=== PATIENT | male | born 1955 | race Caucasian/White ===

== ENCOUNTER 2016-07-18 12:25 | Inpatient (IN) | payer OTHER ==
[~2016-07-18] VITALS: Ht 180.3 cm; Wt 163.2 kg
--- NOTE | ~2016-07-18 | HC ---
[facility] [place] [address] CONSULTATION Name: FARHANA BIRCH Room #: 451- ADM IN M.R.#: [id number] Admission: 07/18/16 Attend Phys: Chauncey Saucedo Discharge: Date of : 55 Report #: [id number] THIS REPORT FOR: //name// CC: Nii Saucedo REASON FOR CONSULTATION: I was asked to evaluate concerning leukocytosis, acute renal failure and evaluate for infection. HISTORY OF PRESENT ILLNESS: The patient is a 60-year-old with underlying nonischemic cardiomyopathy, who presents with persistent rash and acute shortness of breath. He has a permanent pacemaker, which was replaced in 01/2012. He has a prosthetic aortic valve remotely placed. He has been on sacubitril for his heart failure since March. While on this drug, he developed malaise and subsequently a rash with pruritus. He had acute shortness of breath and was hospitalized at [facility] on 07/06. During that hospitalization, he was placed on doxycycline for possible [place] spotted fever; however, serologic studies were negative, and this was discontinued. He was treated for a drug rash with Medrol Dosepak and was later dismissed. He comes in now with worsening shortness of breath. He has progressive rash and pruritus. Last evening, he had an episode of chills without fever. REVIEW OF SYSTEMS: Notes continued pruritus which makes the patient very uncomfortable. He has developed acute renal failure and Nephrology has seen him. He has been given more diuretics for his heart failure. He was actually started on a new drug, ivabradine yesterday. He was on allopurinol and this was discontinued. He has had no cough or sputum production. He has had some thrush. Episode of nausea last evening, which has resolved. No abdominal pain or diarrhea. No dysuria or frequency. No arthritis symptoms. He states that if his itching would subside, he would feel reasonably well. ALLERGIES: Prior to his admission, had included CAT and MORPHINE. MEDICATIONS: As noted on his APR. He was placed on Levaquin on 07/18. Yesterday switched to vancomycin and Zosyn. He remains on Solu-Medrol. PAST MEDICAL AND PAST SURGICAL HISTORY: Obstructive sleep apnea; nonischemic cardiomyopathy, ejection fraction 15%-20%; obesity; atrial fibrillation; permanent pacemaker; aortic valve replacement mechanical in 2004; right ACL patellar tendon repair; right leg fracture surgery; hyperlipidemia; hypertension; left bundle branch block and TIA. FAMILY HISTORY: Noncontributory. SOCIAL HISTORY: Past smoker. No significant alcohol intake. Lives with his [address] [address] CONSULTATION Name: FARHANA BIRCH Room #: [facility] IN M.R.#: [id number] Admission: 07/18/16 Attend Phys: Chauncey Saucedo Discharge: Date of : 55 Report #: [id number] . He is now disabled. No HIV risk factors. PHYSICAL EXAMINATION: VITAL SIGNS: Afebrile and hemodynamically stable. Blood pressures have ranged anywhere from 90-136 systolic over mid 50s-70s diastolic. Heart rate in the 90s. GENERAL: He was sitting up in his chair, in no acute distress. Mental status was normal. He was obese. SKIN: Maculopapular rash diffusely, facial erythema. HEENT: Eyes are unremarkable except for mild conjunctival injection. Mouth, thrush. Tongue normal. NECK: Supple. No adenopathy. LUNGS: Decreased breath sounds in the bases bilaterally. HEART: [place] valve sounds over the aortic area. No gallop appreciated. ABDOMEN: Obese and nontender, no hepatosplenomegaly or mass. EXTREMITIES: Unremarkable. NEUROLOGIC: Normal. LABORATORY STUDIES: Sodium 139, potassium 4.4, bicarbonate of 24, creatinine 3.1, AST 28, ALT 73, alkaline phosphatase 110 and bilirubin 0.6. BNP 5000. Hemoglobin 12.7; platelet count 278,000; white count initially 19.9, now up to 37 with 83% segs, 2% bands and 8% eosinophils, no lymphocytes, vancomycin trough 25. MRSA screen negative. Urinalysis unremarkable. Ultrasound of kidneys negative. Chest x-ray effusions and basilar atelectasis. Blood cultures 07/18 negative. IMPRESSION: A 60-year-old with nonischemic cardiomyopathy, aortic valve replacement, drug rash, leukocytosis likely due from corticosteroids, acute renal failure, combination of cardiorenal disease possibly related to drug allergy, although his urinalysis was unremarkable. His lactic acid this morning was 4.1, but I suspect this is more related to his cardiac output than true sepsis. I would recommend discontinuation of as many drugs as possible including his antibiotics. I agree with holding his allopurinol. The new drug ivabradine could also be consideration, but we will leave this up to Cardiology. He will continue his corticosteroids and antihistamines. We will follow closely. <ELECTRONICALLY SIGNED> By: Abdirizak Werner MD 07/21/16 1112 1042 [id number] Abdirizak Werner MD /nt
--- NOTE | ~2016-07-18 | HC ---
[facility] [place] [address] CONSULTATION Name: FARHANA BIRCH Room #: [facility] ADM IN M.R.#: [id number] Admission: 07/18/16 Attend Phys: Chauncey Saucedo Discharge: Date of : 55 Report #: [id number] THIS REPORT FOR: //name// CC: Nii Navarrete Vaishalicésar Saucedo DATE OF SERVICE: 07/19/2016 REASON FOR CONSULTATION: Elevated creatinine. HISTORY OF PRESENT ILLNESS: The patient with longstanding cardiac disease, had a bicuspid aortic valve, eventually a valve replacement, arrhythmia problems and has had a low ejection fraction, now treated with a bi-V pacemaker and AICD. He was on Entresto and doing well, then had deterioration after the Entresto was doubled. He has had low blood pressure, admissions now at [facility], [facility] and here at [facility]. His course has also been complicated by diffuse maculopapular rash over the last couple of weeks after he was hospitalized initially at [place]. He has also had intermittent hypertension that has been treated. HOME MEDICATIONS: Current listing of home medications include allopurinol 300 mg daily, aspirin 81 mg daily, baclofen 10 mg q. 6 p.r.n., Valium 5 mg p.r.n., Lanoxin 0.125 mg daily, furosemide 40 mg daily, hydrocodone, metoprolol XL 25 mg daily, Percocet and warfarin. He also has a past history of sleep apnea, atrial fibrillation as well as cardiomyopathy with ejection fraction of 15-20%. REVIEW OF SYSTEMS: GENERAL: He had been feeling poorly, feeling a bit better now. EYES: His vision is okay. No trouble there. ENT: Hearing okay, swallows okay. Denies mouth sores or ulcers. ENDOCRINE: No diabetes or thyroid disease. RESPIRATORY: Has been getting easily short-winded and fatigued. CARDIAC: Denies angina, but his legs were swollen . GASTROINTESTINAL: No nausea or vomiting. GENITOURINARY: Occasionally having trouble starting his urinary stream. NEUROLOGIC: No seizure, syncope or stroke. PSYCHIATRIC: No depression or anxiety. SKELETAL: No arthritis. PHYSICAL EXAMINATION: GENERAL: This is a somewhat ill-appearing gentleman in no acute distress. SKIN: With diffuse maculopapular rash over the trunk and extremities. SKELETAL: Somewhat obese. HEENT: Extraocular movements are full. Vision intact. No scleral icterus. Hearing intact. Mucous membranes moist. [facility] [address] [place] [address] CONSULTATION Name: FARHANA BIRCH Room #: [address] [place] [address] [place] [facility].#: [id number] Admission: 07/18/16 Attend Phys: Chauncey Saucedo Discharge: Date of : 55 Report #: [id number] NECK: Supple. CHEST: Shows diminished breath sounds at the bases. HEART: Distant. ABDOMEN: Soft. EXTREMITIES: Showed 2-3+ peripheral edema. LABORATORY DATA: The creatinine is 2.0, was 1.9 yesterday, BUN is 45, but he is on steroids, albumin is 2.9. Of note, creatinine when hospitalized at this hospital last year was as low as 1.3, hemoglobin is 12.4, white count is 23.1, again he is on steroids, there are 6% eosinophils. ASSESSMENT: 1. Elevated creatinine. This could well be simply cardiorenal with worsening cardiac performance. His blood pressures have been running substantially less than 100 at times and this could also be contributing to decreased renal perfusion. He does have the skin rash and allergic interstitial nephritis must be considered. He is on some steroids, there he does have the eosinophils and certainly must be considered for completeness, urinalysis, urine protein studies, paraprotein studies and renal sonography have all been ordered and those would be reviewed. Currently, he is markedly volume overloaded and I believe another dose of IV Lasix is indicated. I will give that. 2. Heart failure with reduced ejection fraction, again we will give Lasix. He is now restarted on Corlanor as well. 3. History of prosthetic aortic valve, he is on anticoagulation. 4. Paroxysmal atrial fibrillation. 5. History obstructive sleep apnea. <ELECTRONICALLY SIGNED> By: Cong Dorado MD 07/22/16 1012 [id number] [id number] Landon Chappell MD /nt
--- NOTE | ~2016-07-18 | HC ---
[facility] [address] [place] [address] CONSULTATION Name: FARHANA BIRCH Room #: [address] [place] [address] IN M.R.#: [id number] Admission: 07/18/16 Attend Phys: Chauncey Saucedo Discharge: 07/26/16 Date of : 55 Report #: [id number] THIS REPORT FOR: //name// CC: Nii Saucedo HISTORY OF PRESENT ILLNESS: The patient is a 60-year-old male who was admitted with increased shortness of breath, was noted to have hypoxic respiratory failure. He had bronchitis. He was noted to have acute on chronic respiratory failure. He had acute renal insufficiency, question nephritis. He is improving and he is being changed by nephrology over to p.o. Lasix. He has nonischemic cardiomyopathy with automatic implantable cardiac defibrillator. He has acute on chronic systolic congestive heart failure. He was noted to have a drug rash suspected, continuing steroids with infectious disease involved. He was noted to have medical complexity with generalized debilitation. We are seeing him in rehabilitation medicine consultation. PAST MEDICAL HISTORY: Includes left bundle branch block, hyperlipidemia, hypertension, right ACL patellar tendon repair. Continues to have some instability of that right knee, but does not want any further surgery. He had the pacemaker in 2013, history of obesity, cardiomyopathy, ejection fraction 15-20%. Obstructive sleep apnea. MEDICATIONS: Please see the full medication listing. HABITS: Former smoker, quit greater than a year ago. No history of alcohol abuse. ALLERGIES: MORPHINE AND CATS. SOCIAL HISTORY: House, spouse, 2 steps in. Used a cane with the right knee. REVIEW OF SYSTEMS: Did not offer any current complaints of chest pain, shortness of breath or abdominal discomfort. Notes he was hospitalized at [facility] and was discharged just a couple of days prior to his current [facility] hospitalization. PHYSICAL EXAMINATION: GENERAL: He is an obese, pleasant 60-year-old white male in no obvious distress. VITAL SIGNS: Last recorded temperature 96.2, pulse 71, respirations 18, blood pressure 130/73. The patient is alert, oriented. HEENT: Appeared to be benign. NEUROLOGIC: Cranial nerves are grossly intact. Facies are symmetric. He has functional range of motion of both upper extremities without obvious focal weakness. DTRs are 1. No focal calf swelling bilaterally. Strength is grade [facility] [address] [place] [address] CONSULTATION Name: FARHANA BIRCH Room #: [address] [place] [address] IN M.R.#: [id number] Admission: 07/18/16 Attend Phys: Chauncey Saucedo Discharge: 07/26/16 Date of : 55 Report #: [id number] 4-/5 left lower extremity and 4-/5 right lower extremity. Tone is intact. He does have a rash noted over both upper and lower extremities. This is non confluent erythematous semi-raised rash. No blistering. Functionally, he has been standby assistance with sit to stand and has ambulated 50 feet contact guard. ASSESSMENT: A 60-year-old white male with the following problem list: 1. Medical complexity with generalized debilitation. 2. Acute on chronic respiratory failure. 3. Acute renal insufficiency, which is improving. 4. Hypersensitivity reaction/drug reaction. 5. Nonischemic cardiomyopathy with AICD. 6. Acute on chronic systolic congestive heart failure. 7. Obesity. 8. Prior right anterior cruciate ligament/patellar tendon repair. PLAN: The patient is involved in the therapies to work on improving strength and endurance and balance. He is hoping to return directly home where he can have home health care. Will need to do some stair training prior to discharge and needs to further improve his endurance. At this point, we will continue to follow along with you regarding his therapy needs. <ELECTRONICALLY SIGNED> By: Nii Braun MD 07/30/16 1518 151 09 Nii Braun MD /nt
--- NOTE | ~2016-07-18 | HC ---
[facility] [address] CONSULTATION Name: FARHANA BIRCH Room #: [facility] ADM IN M.R.#: [id number] Admission: 07/18/16 Attend Phys: Chauncey Saucedo Discharge: Date of : 55 Report #: [id number] THIS REPORT FOR: //name// CC: Nii Navarrete Vaishali Chauncey Saucedo DATE OF SERVICE: 07/18/2016 DATE OF SERVICE: 07/18/2016. REFERRAL PHYSICIAN: Chauncey Saucedo MD. REASON FOR REFERRAL: Dyspnea. HISTORY OF PRESENT ILLNESS: The patient is a 60-year-old white male who presents to emergency room with increasing dyspnea, febrile illness and diaphoresis. A pulmonary consultation was requested. The patient had it eventful last several weeks. He was recently hospitalized at [facility] following an 11 day hospitalization there. He was seen for dyspnea along with intractable hiccups and rash. The cause of the rash was felt to be related to drug allergy. The culprit was felt to be ENTRESTO. He was discharged 2 days ago. He was doing fair until on the day of admission when he began to notice increasing dyspnea on exertion. Otherwise, denies any chest pain or productive cough or hemoptysis. The patient was recently diagnosed with sleep apnea. The study was done in October 2015. The apnea-hypopnea index measured 90 events per hour with low saturation 87%. The patient has been intolerant to the use of CPAP. PAST MEDICAL HISTORY: Remarkable for history of complete heart block, status post dual chamber pacemaker implantation in January 2014; cardiomyopathy with ejection fraction approximately 45%, status post prosthetic aortic valve; hypertension; hyperlipidemia; and past history of TIA. PAST SURGICAL HISTORY: Include status post aortic valve replacement with a mechanical valve, 2004 and right ACL and patellar repair, right lower extremity fracture. ALLERGIES: MORPHINE, reactions not specified. ENTRESTO ? possible rash. CURRENT MEDICATIONS: Include aspirin, metoprolol, Lasix, allopurinol, digoxin, Coumadin, oxycodone, Valium, Lioresal. [facility] [address] [place] [address] CONSULTATION Name: FARHANA BIRCH Room #: [address] [place] [address] IN M.R.#: [id number] Admission: 07/18/16 Attend Phys: Chauncey Saucedo Discharge: Date of : 55 Report #: [id number] FAMILY HISTORY: Noncontributory SOCIAL HISTORY: The patient has smoked in the past, but quit. Denies any alcohol use. REVIEW OF SYSTEMS: Notable with recent onset of diaphoresis, otherwise 10-point system review negative. PHYSICAL EXAMINATION: GENERAL: He is awake, alert, appears to be moderately dyspneic. VITAL SIGNS: Temperature in the ER is 98.5 degrees Fahrenheit, pulse is 110, respiratory rate is 20, blood pressure 100/62 mmHg, and saturation is 94%. HEENT: Normocephalic, atraumatic. NECK: Supple, without any lymphadenopathy or thyromegaly. CHEST: Breath sounds are fair due to poor effort. No obvious rales or wheezes. CARDIOVASCULAR: Heart sounds are distant. No obvious murmurs or gallop. Pulses are 2+/4+ bilaterally. ABDOMEN: Obese, soft, nontender, no organomegaly or masses felt. GENITOURINARY: Deferred. RECTAL: Deferred. EXTREMITIES: No cyanosis or clubbing. Trace edema bilaterally. LABORATORY AND DIAGNOSTIC DATA: Chest x-ray was clear. Electrolytes: Sodium 137, potassium 4.3, chloride 102, CO2 of 27, BUN is 39, creatinine is 1.9. WBC 19,900; hemoglobin is 13.9; platelets are normal. INR is 3.8. Albumin is 2.9. Eosinophil count is 6%. IMPRESSION: 1. Dyspnea in this 60-year-old white male. He had recent development of rash which is apparently improving. He has had diaphoresis. He has past history of prosthetic aortic valve replaced in 2004, obstructive sleep apnea, intolerant to the use of CPAP, severe ischemic cardiomyopathy. Cause of dyspnea, dyspnea is likely multifactorial. Chest x-ray does not show obvious evidence of pneumonia, though this could be early onset nosocomial infectious process. Underlying obstructive sleep apnea is not treated, cardiomyopathy is likely contributing. With his recent presumed chills and febrile illness and the rash, sepsis syndrome should be considered. 2. Diffuse rash, presumed drug reaction ? allopurinol, ? others, ? atypical infection. The patient was seen by ID at [facility]. Workup was thus far negative. 3. Obstructive sleep apnea, intolerant to the use of CPAP. Strongly recommended compliance given symptoms. 4. Severe cardiomyopathy, nonischemic, likely due to valvular heart disease along with untreated sleep apnea. 5. Prosthetic aortic valve 2004, on chronic anticoagulation. 6. Hypertension. [address] [place] [address] CONSULTATION Name: FARHANA BIRCH Room #: [address] [place] [address] IN M.R.#: [id number] Admission: 07/18/16 Attend Phys: Chauncey Saucedo Discharge: Date of : 55 Report #: [id number] 7. Obesity. 8. Acute kidney injury/chronic kidney disease. RECOMMENDATION: Agree plans with broad spectrum antibiotics, culture. Keep saturation 90%. Encourage use of BiPAP or CPAP as tolerated. Thank you for the consultation. <ELECTRONICALLY SIGNED> By: Glen Lugo MD 07/22/16 1350 1054 0516 Glen Lugo MD /nt
--- NOTE | ~2016-07-18 | EKG ---
[address] [address] ELECTROCARDIOGRAM REPORT Name: FARHANA BIRCH Room #: 307- ADM IN M.R.#: [id number] Admission: 07/18/16 Attend Phys: Chauncey Saucedo Discharge: Date of : 55 Report #: [id number] THIS REPORT FOR: //name// [facility] ED Test Date: 2016-07-18 Test Time: 13:17:14 Pat Name: FARHANA BIRCH Department: Room: [facility] Gender: M [employer] Cutting Machine Operator: : 1955 Requested By: Kaye Trejo Order Number: [id number] MD: Gurdeep De Los Santos Measurements Intervals Milo Rate: 96 P: 5 GA: 157 QRS: 207 QRSD: 137 T: 19 QT: 374 QTc: 473 Interpretive Statements Atrial-sensed ventricular-paced rhythm No further analysis attempted due to paced rhythm Baseline wander in lead(s) V3 Compared to ECG 10/20/2015 06:40:11 No significant changes Electronically Signed On 07-18-2016 21:01:13 CDT by Gurdeep De Los Santos [email or web address] <ELECTRONICALLY SIGNED> By: Gurdeep De Los Santos MD 07/18/16 2101 1317 1317 Gurdeep De Los Santos MD /EPI
[~2016-07-18 12:25] MED LIST: ALLOPURINOL 30300 M1 PO; ASPIR 8181 MG PO; COUMADIN 5 MG TA5 M1 PO; COUMADIN7.5 MG PO; ENOXAPARIN150 MG/11 SUBQ; ENTRESTO 24 MG1 EACH PO; KEFLEX250 MG PO; KLOR-CON20 ME1 PO; LANOXIN 0.120.125 M2 PO; LASIX 40 MG TAB40 M2 PO; LISINOPRIL5 MG PO; TOPROL XL25 MG PO; TRIBENZOR 40-51 EAC1 PO
[2016-07-18 12:26] VITALS: BP 101/62
[2016-07-18 13:33] LABS: HEMOGLOBIN 13.9 gm/dL (14.0-18.0); MCH 27.8 pg (26.0-34.0); MCV 84.3 fL (80.0-100.0); PLATELET COUNT 339 thou/uL (150-400); RBC 4.98 mil/uL (4.50-6.00); RDW 15.4 % (10.5-14.5); WBC 19.9 thou/uL (4.0-11.0)
[2016-07-18 13:34] LABS: MANUAL DIFF YES
[2016-07-18 13:42] LABS: ANION GAP 8 mmol/L (7-16); BUN 39 mg/dL (7-18); CHLORIDE 102 mmol/L (98-107); CO2 27 mmol/L (21-32); CREATININE 1.9 mg/dL (0.7-1.3); GLUCOSE 203 mg/dL (74-106); POTASSIUM 4.3 mmol/L (3.5-5.1); SODIUM 137 mmol/L (136-145)
[2016-07-18 13:43] LABS: CALCIUM 8.7 mg/dL (8.5-10.1)
[2016-07-18 13:45] LABS: APTT 38.5 Seconds (24.5-32.8); INR 3.8
[2016-07-18 13:55] LABS: ALBUMIN 2.9 g/dL (3.4-5.0); ALKALINE PHOSPHATASE 110 U/L (46-116); NT-PRO BRAIN NAT PEPTIDE 5148 pg/mL (<300); SGOT 28 U/L (15-37); SGPT 73 U/L (30-65); TOTAL BILIRUBIN 0.6 mg/dL (<0.1-1.0); TOTAL PROTEIN 6.3 g/dL (6.4-8.2); TROPONIN-I < 0.04 ng/mL (<0.04-0.07)
[2016-07-18 14:06] LABS: METAMYELOCYTES 1 %; TOTAL CELL COUNT 100
[2016-07-18 14:07] LABS: ABSOLUTE NEUTROPHILS 14.9 thou/uL (1.4-8.2)
[2016-07-18] MEDS ORDERED: HYDROCODONE-AP1 EAC6 PO (15:14)
[2016-07-18] MEDS ORDERED: COUMADIN7.5 MG PO (15:14)
[2016-07-18] MEDS ORDERED: PERCOCET PO (15:15)
[2016-07-18] MEDS ORDERED: VALIUM5 MG PO (15:15)
[2016-07-18] MEDS ORDERED: LIORESAL 10 MG10 MG PO (15:16)
[2016-07-18 16:30] VITALS: BP 96/56
[2016-07-18 17:21] VITALS: BP 93/48
[2016-07-18 20:00] VITALS: BP 137/77
[2016-07-19 04:00] VITALS: BP 118/52
[2016-07-19 06:26] LABS: HEMATOCRIT 39.5 % (42.0-52.0); HEMOGLOBIN 12.4 gm/dL (14.0-18.0); MCH 27.2 pg (26.0-34.0); MCHC 31.4 g/dL (28.0-37.0); MCV 86.5 fL (80.0-100.0); RBC 4.56 mil/uL (4.50-6.00); RDW 15.7 % (10.5-14.5); WBC 23.1 thou/uL (4.0-11.0)
[2016-07-19 06:44] LABS: CALCIUM 8.3 mg/dL (8.5-10.1); POTASSIUM 3.8 mmol/L (3.5-5.1)
[2016-07-19 08:54] VITALS: BP 136/74
[2016-07-19 14:58] LABS: URINE BILIRUBIN NEGATIVE (Negative); URINE BLOOD NEGATIVE (Negative); URINE COLOR YELLOW; URINE GLUCOSE-RANDOM* NEGATIVE (Negative); URINE KETONES NEGATIVE (Negative); URINE NITRITE NEGATIVE (Negative); URINE PROTEIN (DIPSTICK) TRACE (Negative); URINE UROBILINOGEN 0.2 E.U./dl (0.2-1.0)
[2016-07-19 16:52] VITALS: BP 133/73
[2016-07-19 19:33] VITALS: BP 123/58
[2016-07-20 04:08] VITALS: BP 105/60
[2016-07-20 05:12] LABS: URINE CREATININE-RANDOM* 106.4 mg/dL (Not Estab.); URINE PROTEIN-RANDOM* 27.6 mg/dL (Not Estab.)
[2016-07-20 05:51] LABS: HEMATOCRIT 39.6 % (42.0-52.0); HEMOGLOBIN 12.7 gm/dL (14.0-18.0); MCH 27.4 pg (26.0-34.0); MCHC 32.1 g/dL (28.0-37.0); MCV 85.5 fL (80.0-100.0); PLATELET COUNT 278 thou/uL (150-400); RBC 4.63 mil/uL (4.50-6.00); RDW 15.6 % (10.5-14.5); WBC 37.1 thou/uL (4.0-11.0)
[2016-07-20 05:54] LABS: MANUAL DIFF YES
[2016-07-20 06:01] LABS: INR 3.2; PROTIME 32.8 Seconds (9.3-11.4)
[2016-07-20 06:11] LABS: ALBUMIN 2.7 g/dL (3.4-5.0); CALCIUM 8.2 mg/dL (8.5-10.1); PHOSPHORUS 2.6 mg/dL (2.5-4.9); POTASSIUM 4.4 mmol/L (3.5-5.1)
[2016-07-20 06:20] LABS: CREATININE 3.1 mg/dL (0.7-1.3)
[2016-07-20 08:00] VITALS: BP 86/54
[2016-07-20 08:34] LABS: ABSOLUTE NEUTROPHILS 31.5 thou/uL (1.4-8.2); METAMYELOCYTES 1 %; TOTAL CELL COUNT 100
[2016-07-20 08:35] LABS: ANISOCYTOSIS 1+; POLYCHROMASIA OCCASIONAL
[2016-07-20 10:39] LABS: ABG SAMPLE TYPE ARTERIAL; HCO3 22.7 mmol/L (22.0-26.0); LACTATE 3.51 mmol/L (0.5-2.0); O2(CT) 17.6 mL/dL (15.0-23.0); O2Hb 94.1 % (92.0-98.0); PCO2 38.7 mmHg (35.0-45.0); PO2 77.6 mmHg (80.0-100.0); STICK SITE L.RADIAL; pH 7.387 (7.360-7.450); sO2 95.4 % (92.0-98.0); tCO2 23.9 mmol/L (24.0-30.0)
[2016-07-20 14:35] VITALS: BP 128/64
[2016-07-20 16:30] VITALS: BP 119/59
[2016-07-20 19:13] VITALS: BP 126/70
[2016-07-20 20:37] VITALS: BP 160/84
[2016-07-21 04:11] VITALS: BP 124/63
[2016-07-21 06:05] LABS: HEMATOCRIT 36.9 % (42.0-52.0); HEMOGLOBIN 11.7 gm/dL (14.0-18.0); MCH 27.3 pg (26.0-34.0); MCHC 31.8 g/dL (28.0-37.0); MCV 85.8 fL (80.0-100.0); RDW 15.5 % (10.5-14.5)
[2016-07-21 06:16] LABS: INR 3.9; PROTIME 40.9 Seconds (9.3-11.4)
[2016-07-21 06:23] LABS: ALBUMIN 2.6 g/dL (3.4-5.0); CALCIUM 7.8 mg/dL (8.5-10.1); PHOSPHORUS 5.2 mg/dL (2.5-4.9); POTASSIUM 4.1 mmol/L (3.5-5.1)
[2016-07-21 06:33] LABS: ALBUMIN 2.6 g/dL (3.4-5.0); ALKALINE PHOSPHATASE 74 U/L (46-116); ANION GAP 13 mmol/L (7-16); BUN 75 mg/dL (7-18); CALCIUM 7.9 mg/dL (8.5-10.1); CHLORIDE 99 mmol/L (98-107); CO2 23 mmol/L (21-32); GLUCOSE 209 mg/dL (74-106); MAGNESIUM 1.9 mg/dL (1.8-2.4); PHOSPHORUS 5.1 mg/dL (2.5-4.9); POTASSIUM 4.1 mmol/L (3.5-5.1); SGOT 29 U/L (15-37); SGPT 80 U/L (30-65); SODIUM 135 mmol/L (136-145); TOTAL BILIRUBIN 0.5 mg/dL (<0.1-1.0); TOTAL PROTEIN 5.5 g/dL (6.4-8.2); TROPONIN-I < 0.04 ng/mL (<0.04-0.07)
[2016-07-21 06:39] LABS: CREATININE 4.8 mg/dL (0.7-1.3)
[2016-07-21 06:41] LABS: CREATININE 4.8 mg/dL (0.7-1.3)
[2016-07-21 07:37] LABS: MANUAL DIFF YES; PLATELET COUNT 197 thou/uL (150-400); WBC 18.1 thou/uL (4.0-11.0)
[2016-07-21 07:42] VITALS: BP 100/60
[2016-07-21 10:28] LABS: ABSOLUTE NEUTROPHILS 16.3 thou/uL (1.4-8.2); ANISOCYTOSIS 1+; METAMYELOCYTES 1 %; TOTAL CELL COUNT 100
[2016-07-21 11:27] VITALS: BP 123/61
[2016-07-21 16:03] VITALS: BP 93/56
[2016-07-21 22:09] VITALS: BP 154/76
[2016-07-22 05:54] VITALS: BP 118/66
[2016-07-22 05:58] LABS: ABSOLUTE NEUTROPHILS 11.3 thou/uL (1.4-8.2); BASOPHILS 0.2 % (0.0-2.0); EOSINOPHILS 0.5 % (0.0-3.0); HEMATOCRIT 35.5 % (42.0-52.0); HEMOGLOBIN 11.3 gm/dL (14.0-18.0); MCH 27.6 pg (26.0-34.0); MCV 86.2 fL (80.0-100.0); MONOCYTES 5.8 % (1.0-8.0); PLATELET COUNT 161 thou/uL (150-400); POLYS 80.5 % (36.0-66.0); RBC 4.11 mil/uL (4.50-6.00); RDW 15.6 % (10.5-14.5)
[2016-07-22 06:01] LABS: MANUAL DIFF NO
[2016-07-22 06:12] LABS: ALBUMIN 2.6 g/dL (3.4-5.0); CALCIUM 7.5 mg/dL (8.5-10.1); PHOSPHORUS 6.2 mg/dL (2.5-4.9); POTASSIUM 4.3 mmol/L (3.5-5.1); PROTIME 48.4 Seconds (9.3-11.4)
[2016-07-22 06:16] LABS: CREATININE 5.8 mg/dL (0.7-1.3)
[2016-07-22 06:25] LABS: INR 4.7
[2016-07-22 08:00] VITALS: BP 120/61
[2016-07-22 12:30] VITALS: BP 115/67
[2016-07-22 14:11] LABS: KAPPA FREE LIGHT CHAINS 19.5 mg/L (3.30-19.40); KAPPA/LAMBDA RATIO 1.37 (0.26-1.65); LAMBDA FREE LIGHT CHAINS 14.19 mg/L (5.71-26.30)
[2016-07-22 16:15] VITALS: BP 105/50
[2016-07-22 19:58] VITALS: BP 146/67
[2016-07-23 04:34] VITALS: BP 133/76
[2016-07-23 05:53] LABS: HEMATOCRIT 34.6 % (42.0-52.0); HEMOGLOBIN 11.6 gm/dL (14.0-18.0); MCH 28.3 pg (26.0-34.0); MCHC 33.5 g/dL (28.0-37.0); MCV 84.4 fL (80.0-100.0); RBC 4.1 mil/uL (4.50-6.00); RDW 15.6 % (10.5-14.5)
[2016-07-23 06:03] LABS: INR 4.4; PROTIME 45.6 Seconds (9.3-11.4)
[2016-07-23 06:19] LABS: ALBUMIN 2.6 g/dL (3.4-5.0); CALCIUM 7.4 mg/dL (8.5-10.1); CREATININE 5.8 mg/dL (0.7-1.3); PHOSPHORUS 6.5 mg/dL (2.5-4.9)
[2016-07-23 10:48] VITALS: BP 126/71
[2016-07-23 11:34] VITALS: BP 130/73
[2016-07-23 16:11] LABS: c-ANCA <1:20 titer (Neg:<1:20); p-ANCA <1:20 titer (Neg:<1:20)
[2016-07-23 17:15] VITALS: BP 157/83
[2016-07-23 19:34] VITALS: BP 126/77
[2016-07-24 03:29] LABS: HEMATOCRIT 38.7 % (42.0-52.0); HEMOGLOBIN 12.3 gm/dL (14.0-18.0); MCH 27.4 pg (26.0-34.0); MCHC 31.8 g/dL (28.0-37.0); MCV 86.1 fL (80.0-100.0); RBC 4.5 mil/uL (4.50-6.00); RDW 15.6 % (10.5-14.5); WBC 13.6 thou/uL (4.0-11.0)
[2016-07-24 03:53] LABS: ALBUMIN 2.9 g/dL (3.4-5.0); CALCIUM 7.6 mg/dL (8.5-10.1); CREATININE 5.8 mg/dL (0.7-1.3); PHOSPHORUS 6.4 mg/dL (2.5-4.9)
[2016-07-24 04:57] VITALS: BP 102/42
[2016-07-24 07:14] VITALS: BP 136/72
[2016-07-24 09:29] LABS: PROTIME 30.8 Seconds (9.3-11.4)
[2016-07-24 11:28] VITALS: BP 138/78
[2016-07-24 15:23] VITALS: BP 141/76
[2016-07-24 19:21] VITALS: BP 102/57
[2016-07-25 03:19] VITALS: BP 131/73
[2016-07-25 06:01] LABS: HEMATOCRIT 39.9 % (42.0-52.0); HEMOGLOBIN 12.9 gm/dL (14.0-18.0); MCH 27.4 pg (26.0-34.0); MCHC 32.2 g/dL (28.0-37.0); RBC 4.7 mil/uL (4.50-6.00); RDW 15.5 % (10.5-14.5); WBC 12.2 thou/uL (4.0-11.0)
[2016-07-25 06:22] LABS: ALBUMIN 3.1 g/dL (3.4-5.0); CREATININE 5.1 mg/dL (0.7-1.3); PHOSPHORUS 5.9 mg/dL (2.5-4.9); POTASSIUM 3.9 mmol/L (3.5-5.1)
[2016-07-25 07:30] VITALS: BP 119/76
[2016-07-25 09:41] LABS: PROTIME 20.7 Seconds (9.3-11.4)
[2016-07-25 19:07] VITALS: BP 137/71
[2016-07-26 03:07] VITALS: BP 134/69
[2016-07-26 06:22] LABS: INR 1.7; PROTIME 17.9 Seconds (9.3-11.4)
[2016-07-26 06:24] LABS: ALBUMIN 2.6 g/dL (3.4-5.0); CALCIUM 7.9 mg/dL (8.5-10.1); CREATININE 4.7 mg/dL (0.7-1.3); PHOSPHORUS 5.5 mg/dL (2.5-4.9); POTASSIUM 3.8 mmol/L (3.5-5.1)
[2016-07-26 07:32] VITALS: BP 120/75
[2016-07-26 09:32] VITALS: BP 120/75
[2016-07-26] MEDS ORDERED: ISORDIL10 MG PO (10:49)
[2016-07-26] MEDS ORDERED: PREDNISONE 20 M20 M1 PO (10:51)
[2016-07-26 11:23] VITALS: BP 120/75
[2016-07-26 12:07] VITALS: BP 120/75
[2016-07-29 16:08] LABS: A/G RATIO 1.2 (0.7-1.7); ALBUMIN 2.9 g/dL (2.9-4.4); ALPHA 1 0.3 g/dL (0.0-0.4); ALPHA 2 0.5 g/dL (0.4-1.0); BETA 0.9 g/dL (0.7-1.3); GAMMA 0.6 g/dL (0.4-1.8); M-SPIKE Not Observed g/dL (Not Observed)
== END 2016-07-26 11:45 | disposition home health service (06) | DRG 177 ==
LOC: ER 12:25 → 3N 14:51 → EROBS 14:51 → 3N 16:39 → 4W 07-20 11:28
PROVIDERS: Hospitalist; Internal Medicine Cardiovascular Disease; Internal Medicine Nephrology; Internal Medicine Pulmonary Disease; Nurse Practitioner Adult Health; Physician Assistant
DX: J69.0 Pneumonitis due to inhalation of food and vomit (principal); I50.23 Acute on chronic systolic (congestive) heart failure; J96.21 Acute and chronic respiratory failure with hypoxia; N17.9 Acute kidney failure, unspecified; J44.0 Chronic obstructive pulmonary disease with (acute) lower respiratory infection; N10 Acute pyelonephritis; I13.0 Hypertensive heart and chronic kidney disease with heart failure and stage 1 through stage 4 chronic kidney disease, or unspecified chronic kidney disease; I42.8 Other cardiomyopathies; Z68.43 Body mass index [BMI] 50.0-59.9, adult; E78.5 Hyperlipidemia, unspecified; J15.6 Pneumonia due to other Gram-negative bacteria; L27.0 Generalized skin eruption due to drugs and medicaments taken internally; D72.1 Eosinophilia; I48.0 Paroxysmal atrial fibrillation; G47.33 Obstructive sleep apnea (adult) (pediatric); N18.9 Chronic kidney disease, unspecified; T38.0X5A Adverse effect of glucocorticoids and synthetic analogues, initial encounter; B37.9 Candidiasis, unspecified; I44.7 Left bundle-branch block, unspecified; T50.4X5A Adverse effect of drugs affecting uric acid metabolism, initial encounter; E66.9 Obesity, unspecified; Z79.01 Long term (current) use of anticoagulants; Z79.82 Long term (current) use of aspirin; Z79.899 Other long term (current) drug therapy; Z95.2 Presence of prosthetic heart valve; Z87.81 Personal history of (healed) traumatic fracture; Z87.891 Personal history of nicotine dependence; Z88.5 Allergy status to narcotic agent; Z88.8 Allergy status to other drugs, medicaments and biological substances; Z95.810 Presence of automatic (implantable) cardiac defibrillator; Z86.73 Personal history of transient ischemic attack (TIA), and cerebral infarction without residual deficits; Y92.89 Other specified places as the place of occurrence of the external cause
CPT/HCPCS: 10045; 10094